=== PATIENT | male | born 1950 | race Caucasian/White ===

== ENCOUNTER 2020-11-03 15:21 | Emergency (ER) | payer MEDICARE, SELFPAY ==
[2020-11-03 15:38] VITALS: BP 184/89; PULSE 92; RESP 20; TEMP 36.8; O2SAT 99; BMI 24.4
--- NOTE | 2020-11-03 15:58 | HMH.EDGENADL ---
ED Disposition Clinical Impression: Dental caries, Dental abscess Disposition: Home, Self-Care Condition on Discharge: Good Instructions: DI for Dental Pain, DI for Tooth Decay Additional Instructions: You have been evaluated for dental caries and dental pain. Concern for infection. Please take penicillin as prescribed. Take ibuprofen for inflammation. Use Orajel. Follow-up with a dentist as soon as available. Return to the emergency department at once for any new or worsening symptoms, headache, fevers, difficulty swallowing or any other concerns. Prescriptions: Ibuprofen [Ibuprofen 600mg Tablet] 600 mg PO Q6 PRN #20 tab PRN Reason: Mild Pain Transmission Status: [facility] Benzocaine [Oral Analgesic] 9 gm MM BID #9 gel..gram. Transmission Status: Pending to [facility] Penicillin V Potassium 500 mg PO TID #15 tab Transmission Status: Pending to [facility] Referrals: William Arias MD [Primary Care Provider] - Time of Disposition: 16:02 - Critical Care Critical Care Time: No Attestation: On 11/03/20, the high probability of a clinically significant, sudden or life threatening deterioration of the following system(s) required my full and direct attention, intervention and personal management. The time I documented below is in addition to time spent performing reported procedures but includes the following listed in this critical care notation. Medical Decision Making - Medical Records Medical records reviewed: Yes: I reviewed the patient's medical records. - Jann Inquiry Pt receiving controlled substance: No Vital Signs: 11/03/20 15:38 Temperature 98.2 F Temperature Source Oral Pulse Rate [Left] 92 H Respiratory Rate 20 Blood Pressure [Right Arm] 184/89 H Blood Pressure Mean [Right Arm] 120 02 Sat by Pulse Oximetry 99 Medical Decision Narrative: In summary this is a 70-year-old male presenting to the emergency department with dental pain. Patient clinically stable on arrival. He does not appear systemically ill. Doubt deep space infection. Vital signs within normal limits. His extractions were a few weeks ago. I am concerned that I can feel a retained piece of tooth. Will cover presumptively for dental infection. Patient given prescription for penicillin. Recommended to take anti-inflammatories like ibuprofen. Use Orajel. Follow-up with a dentist as soon as available. General Adult HPI - General Chief complaint: Dental/Oral Stated complaint: infection at tooth extraction site Time Seen by Provider: 11/03/20 15:38 Mode of Arrival: Ambulatory Limitations: No Limitations Description of Symptoms (Recalled from ER Triage Doc. by RN): pt states he had two molars pulled in the R upper jaw about two weeks ago. pt states he now has an infection and pain radiating from his R upper jaw to his ear. - History of Present Illness HPI narrative: 70-year-old male presenting to the emergency department with dental pain, concern for infection. He had dental extraction of one of his right upper molars a few weeks ago. Had pain afterward. Over the last few days the pain has become worse. He feels that the upper portion of his jaw and cheek are swollen. No fevers or chills. No nausea or vomiting. He is scheduled for more dental work soon, is going to go to a different dentist. No antibiotics recently. He is not using anything topically or systemically for pain. No allergies to medications. - Related Data Previous Rx's Medication Instructions Recorded Benzocaine [Oral Analgesic] 9 gm MM BID #9 gel..gram. 11/03/20 Ibuprofen [Ibuprofen 600mg 600 mg PO Q6 PRN #20 tab 11/03/20 Tablet] Penicillin V Potassium 500 mg PO TID #15 tab 11/03/20 Allergies Allergy/AdvReac Type Severity Reaction Status Date / Time No Known Allergies Allergy Verified 11/03/20 16:04 [facility] History - Hepatitis A Screen Drug use history?: No High risk
[2020-11-03 16:31] VITALS: BP 124/87; PULSE 72; RESP 16; TEMP 36.9; O2SAT 98
== END 2020-11-03 16:32 | disposition home or self-care (01) ==
PROVIDERS: Emergency Provider Emergency Medicine; PCP Emergency Medicine
DX: K04.7 Periapical abscess without sinus (principal); K02.9 Dental caries, unspecified
CPT/HCPCS: 99281

== ENCOUNTER 2020-11-21 12:00 | Emergency (ER) | payer MEDICARE, SELFPAY ==
[2020-11-21 12:01] VITALS: BP 138/88; PULSE 100; RESP 20; TEMP 36.8; O2SAT 99; BMI 24.4
--- NOTE | 2020-11-21 13:09 | HMH.EDUTC ---
[facility] Disposition Clinical Impression: Dental abscess Disposition: Home, Self-Care Condition on Discharge: Good Instructions: Tooth Abscess Additional Instructions: Salt water swishes. Take antibiotics as prescribed. Prescriptions: Penicillin V Potassium 500 mg PO QID 10 Days #40 tab Transmission Status: P[facility] to [facility] Referrals: William Arias MD [Primary Care Provider] - Time of Disposition: 13:15 Medical Decision Making - Jann Inquiry Pt receiving controlled substance: No [facility] HPI - General Stated complaint: abcess in mouth Time Seen by Provider: 11/21/20 13:10 - History of Present Illness Provider Complaint: Abscess right upper jaw. Had a tooth pulled a few weeks ago and thinks he has bone fragments still in it. Has been unable to contact dentist who did the procedure. No fever. Onset (ago): week(s) (3) Location: mouth Relieving factors: none Exacerbating factors: none Associated symptoms: denies other symptoms Treatments prior to arrival: none - Related Data Previous Rx's Medication Instructions Recorded Benzocaine [Oral Analgesic] 9 gm MM BID #9 gel..gram. 11/03/20 Ibuprofen [Ibuprofen 600mg 600 mg PO Q6 PRN #20 tab 11/03/20 Tablet] Penicillin V Potassium 500 mg PO TID #15 tab 11/03/20 Penicillin V Potassium 500 mg PO QID 10 Days #40 tab 11/21/20 Allergies Allergy/AdvReac Type Severity Reaction Status Date / Time No Known Allergies Allergy Verified 11/03/20 16:05 [facility] History - Hepatitis A Screen Attestation statement:: This patient has been screened for Hepatitis A risk factors. I have reviewed the patient's past medical history: Yes ROS Obtained: Yes All systems reviewed & no additional complaints - ENT Ears, Nose, Mouth, and Throat: Reports dental pain Physical Exam - General General appearance: alert, in no apparent distress - Head Head exam: normocephalic - Eye Eye exam: Present: PERRL - ENT ENT exam: Present: other (abscess right upper gumline) - Neck Neck exam: Absent: lymphadenopathy - Respiratory Respiratory exam: Present: normal lung sounds bilaterally - Cardiovascular Cardiovascular exam: Present: regular rate, normal rhythm - Neurological Exam Neurological exam: Present: alert, oriented X3 - Psychiatric Psychiatric exam: Present: normal affect, normal mood - Skin Skin exam: Present: warm, dry, intact
[2020-11-21 13:22] VITALS: BP 138/88; PULSE 100; RESP 20; TEMP 36.8; O2SAT 99
== END 2020-11-21 13:23 | disposition home or self-care (01) ==
PROVIDERS: Emergency Provider Physician Assistant; PCP Emergency Medicine
DX: K04.7 Periapical abscess without sinus (principal)
CPT/HCPCS: G0463; 99202

== ENCOUNTER → 2021-02-08 16:43 | Outpatient (CLI) | payer MEDICARE, SELFPAY ==
--- NOTE | 2021-02-08 16:53 | XR_ITS ---
PROCEDURE INFORMATION: Exam: XR Chest Exam date and time: 02/08/2021 4:53 PM Age: 70 years old Clinical indication: Cardiovascular condition or disease; Prior surgery; Surgery date: <1 month; Surgery type: Vessel grafted from leg to right upper chest area per patient. Patient had surgery at another hospital and his family doctor is trying to figure out what was actually done. ; Additional info: PT reports HX of bypass TECHNIQUE: Imaging protocol: XR of the chest. Views: 2 views. COMPARISON: No relevant prior studies available. FINDINGS: Tubes, catheters and devices: Multiple surgical clips projected over the upper right chest, projected over the lung apex on frontal and lateral views, and also projected over the posterior chest wall on the lateral view. Lungs: No acute pulmonary findings. No pulmonary consolidation. Lung volumes within normal limits. Pleural spaces: Unremarkable. No significant pleural effusion. No pneumothorax. Heart/Mediastinum: The cardiac silhouette is normal. 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 IMPRESSION: 1. Right upper chest surgical changes. 2. No acute cardiopulmonary findings.
--- NOTE | 2021-02-08 17:14 | ECG_ITS ---
APPROVED REPORT Exam: Resting ECG HR:79 bpm ECG Measurements Heart Rate 79 AXES CO 190 P 113 QRSd 100 QRS 92 QT 378 T 53 QTc 433 Conclusion Suspect arm lead reversal, interpretation assumes no reversal Normal sinus rhythm Rightward axis Borderline ECG Electronically signed by : Gael Coffey MD 02/08/2021 21:12:53
== END ==
LOC: RAD 16:45
PROVIDERS: PCP Family Medicine; Visit Provider Family Medicine
DX: I25.10 Atherosclerotic heart disease of native coronary artery without angina pectoris (principal); Z95.1 Presence of aortocoronary bypass graft
CPT/HCPCS: 71046; 93005

== ENCOUNTER 2021-08-18 14:21 | Emergency (ER) | payer MEDICARE, SELFPAY ==
--- NOTE | 2021-08-18 14:15 | ECG_ITS ---
APPROVED REPORT Exam: Resting ECG HR:90 bpm ECG Measurements Heart Rate 90 AXES AK 197 P 102 QRSd 105 QRS 79 QT 347 T 65 QTc 395 Conclusion SINUS RHYTHM NORMAL ECG UNCONFIRMED REPORT Electronically signed by : Gael Coffey MD 08/19/2021 10:19:07
[2021-08-18 14:17] VITALS: BP 211/109; PULSE 88; RESP 20; TEMP 36.5; O2SAT 100; BMI 23.7
--- NOTE | 2021-08-18 14:24 | HMH.EDGENADL ---
ED Disposition Clinical Impression: Hypertension, essential, Peripheral edema, Left leg pain, Rectal bleeding Bilateral shoulder pain Qualifiers: Chronicity: acute Qualified Code(s): M25.511 - Pain in right shoulder; M25.512 - Pain in left shoulder Disposition: Home, Self-Care Condition on Discharge: Good Instructions: DI for Rectal Bleeding, DI for High Blood Pressure, DI for Peripheral Edema -- Bilateral Additional Instructions: Take losartan/hydrochlorothiazide as prescribed for blood pressure daily, start tomorrow. Continue using Lantus insulin as you do now. See Dr. Arias in the office, call tomorrow morning to make an appointment to be seen as soon as possible. Return if any severe rectal bleeding or any worsening of condition. Prescriptions: Losartan/Hydrochlorothiazide [Losartan-Hctz 100-25 mg Tab] 1 each PO DAILY #30 tab Transmission Status: Pending to [id number] Referrals: Provider,Referral, [Primary Care Provider] - - Critical Care Critical Care Time: No Attestation: On 08/18/21, the high probability of a clinically significant, sudden or life threatening deterioration of the following system(s) required my full and direct attention, intervention and personal management. The time I documented below is in addition to time spent performing reported procedures but includes the following listed in this critical care notation. Medical Decision Making - Jann Inquiry Pt receiving controlled substance: No Vital Signs: 08/18/21 14:17 08/18/21 16:38 08/18/21 16:40 Temperature 97.7 F Temperature Source Oral Pulse Rate 85 Pulse Rate [Right Radial] 88 Respiratory Rate 20 Blood Pressure 184/100 H 184/100 H Blood Pressure [Right Arm] 211/109 H Blood Pressure Mean [Right Arm] 143 Blood Pressure Source [Right Arm] Automatic Cuff Blood Pressure Position [Right Arm] Sitting 02 Sat by Pulse Oximetry 100 99 Oxygen Delivery Method Room Air - Lab Data Lab Results 08/18/21 14:25: WBC 6.9, RBC 4.22 L, Hgb 13.1 L, Hct 38.6 L, MCV 91.5, MCH 31.1, MCHC 34.0, RDW 15.9, Plt Count 151, MPV 8.2, Neut % (Auto) 67.2, Lymph % (Auto) 25.0, [place] % (Auto) 6.0, Eos % (Auto) 0.9, Baso % (Auto) 0.8, Neut # (Auto) 4.6, Lymph # (Auto) 1.7, [place] # (Auto) 0.4, Eos # (Auto) 0.1, Baso # (Auto) 0.1 08/18/21 14:25: Sodium 136, Potassium 4.2, Chloride 103, Carbon Dioxide 26, Anion Gap 11.2, BUN 26 H, Creatinine 1.00, Estimated GFR 74, Est GFR ( Amer) 90, Glucose 261 H, Calcium 9.4, Total Bilirubin 0.6, AST 37, ALT 43, Alkaline Phosphatase 117, Troponin I 0.01, NT-Pro-B Natriuret Pep 462 H, Total Protein 6.4, Albumin 3.7, Globulin 2.7, Albumin/Globulin Ratio 1.4 Result diagrams: 08/18/21 14:25 08/18/21 14:25 Orders (Tests/Meds): ED MEDICATIONS Discontinued Medications Generic Name Dose Route Start Last Admin Trade Name Freq PRN Reason Stop Dose Admin Ketorolac Tromethamine 15 mg 08/18/21 17:02 08/18/21 17:05 Ketorolac 30mg/Ml Vial IV 08/18/21 17:03 15 mg ONCE ONE Administration Labetalol HCl 20 mg 08/18/21 15:53 08/18/21 16:38 Labetalol 5mg/Ml 20ml Mdv IV 08/18/21 15:54 20 mg ONCE ONE Administration ORDERS Category Date Time Status Troponin I Q3H Lab 08/18/21 17:30 Ordered Troponin I Q3H Lab 08/18/21 20:30 Ordered - Radiology Data #1 Image(s): Chest, Shoulder (bilateral) Image Reviewed: Yes I reviewed the patient's radiology image Preliminary Findings: Abnormal (Surgical clips upper right chest. Calcification of soft tissues both shoulders, no fractures.) - US Data US Images: Upper Extremity, Lower Extremity Findings Narrative: As per [facility] procedure, doppler report received from traffic analysis technician: Negative for DVT upper and lower extremity - ECG Data Tracing #1 EKG interpreted by Cecil Obrien MD: Rhythm: sinus Rate: 90 [place]: normal Ectopy: none Conduction: normal ST Segment Changes: none T Wave Changes
--- NOTE | 2021-08-18 14:29 | XR_ITS ---
FINAL REPORT CLINICAL HISTORY: anuradha shoudler pain FINDINGS: RIGHT SHOULDER 3 views of the right shoulder were obtained. There is no acute fracture or dislocation. There are mild degenerative changes of the acromioclavicular and glenohumeral joints. There are soft tissue calcifications in the lateral aspect of the shoulder. There are postoperative changes in the right upper thorax. IMPRESSION: Mild degenerative change of the acromioclavicular and glenohumeral joints. No acute bony abnormality. Reviewed, Interpreted and Dictated by Samm Boyle III, MD Transcribed by Ruby Watts Authenticated by Samm Boyle III, MD on 08/18/2021 04:54:56 PM [facility]
--- NOTE | 2021-08-18 14:29 | XR_ITS ---
FINAL REPORT CLINICAL HISTORY: swelling COMPARISON: February 08, 2021 FINDINGS: TWO-VIEW CHEST Two views of the chest were obtained. The heart size and pulmonary vascularity are within normal limits. The mediastinum is normal. No acute pulmonary abnormality is identified. There is no pneumothorax. There are postoperative changes in the right upper thorax. There are postoperative changes from resection of the medial left clavicle. IMPRESSION: No active cardiopulmonary disease. Reviewed, Interpreted and Dictated by Samm Boyle III, MD Transcribed by Ruby Watts Authenticated by Samm Boyle III, MD on 08/18/2021 04:38:24 PM [facility]
--- NOTE | 2021-08-18 14:29 | XR_ITS ---
FINAL REPORT CLINICAL HISTORY: anuradha shoulder pain FINDINGS: LEFT SHOULDER 3 views of the left shoulder were obtained. There is no acute fracture or dislocation. There are mild degenerative changes of the acromioclavicular and glenohumeral joints. There are soft tissue calcifications in the lateral aspect of the shoulder. There are postoperative changes from partial resection of the medial left clavicle. IMPRESSION: Mild degenerative change of the acromioclavicular and glenohumeral joint. No acute bony abnormality. Reviewed, Interpreted and Dictated by Samm Boyle III, MD Transcribed by Ruby Watts Authenticated by Samm Boyle III, MD on 08/18/2021 04:54:57 PM [facility]
[2021-08-18 14:41] LABS: Basophils # 0.1 K/mm3 (0-0.2); Basophils % 0.8 % (0.1-2.0); Eosinophils # 0.1 K/mm3 (0.0-0.4); Eosinophils % 0.9 % (0.1-12.0); Hematocrit 38.6 % (42.0-52.0); Hemoglobin 13.1 g/dL (14.1-18.0); Lymphocytes # 1.7 K/mm3 (0.7-4.5); Mean Corpuscular Hemoglobin 31.1 pg (27.0-31.2); Mean Corpuscular Volume 91.5 fl (80-94); Mean Platelet Volume 8.2 fl (7.4-10.4); Monocytes # 0.4 K/mm3 (0.1-1.0); Neutrophils # 4.6 K/mm3 (1.8-7.8); Neutrophils % 67.2 % (37.0-80.0); Platelet Count 151 K/mm3 (142-424); Red Blood Count 4.22 M/mm3 (4.60-6.20); Red Cell Distribution Width 15.9 % (11.5-17.5); White Blood Count 6.9 K/mm3 (4.8-10.8)
[2021-08-18 14:42] LABS: Chloride 103 mmol/L (98-107); Sodium 136 mmol/L (136-145)
[2021-08-18 14:45] LABS: Alanine Aminotransferase 43 U/L (12-78); Albumin Level 3.7 g/dl (3.5-5.0); Albumin/Globulin Ratio 1.4 (1.1-1.8); Alkaline Phosphatase 117 U/L (38-126); Aspartate Amino Transferase 37 U/L (17-59); Bilirubin,Total 0.6 mg/dl (0.2-1.3); Blood Urea Nitrogen 26 mg/dl (9-20); Carbon Dioxide 26 mmol/L (22.0-30.0); Estimated Glomerular Filt Rate 74 ml/min (>60); GFR (African American) 90 ML/MIN (>60); Globulin 2.7 g/dL (1.3-3.2); Total Protein,Serum 6.4 g/dl (6.3-8.2)
[2021-08-18 14:46] LABS: Calcium 9.4 mg/dl (8.4-10.2); Glucose 261 mg/dl (74-100)
[2021-08-18 14:54] LABS: NT Pro Brain Natriuretic Pep. 462 pg/mL (0-125)
[2021-08-18 14:58] LABS: Troponin I 0.01 ng/ml (0.00-0.034)
[2021-08-18 15:06] LABS: Anion Gap 11.2 mEq/L (5-15); Potassium 4.2 mmoL/L (3.5-5.1)
--- NOTE | 2021-08-18 15:48 | CA_ITS ---
FINAL REPORT TECHNIQUE: Color Doppler, duplex Doppler and compression sonography of the left lower extremity deep venous systems was performed. CLINICAL HISTORY: swelling pain FINDINGS: There is no evidence of deep venous thrombosis from the level of the groin to the calf. The veins are patent and compressible. IMPRESSION: No evidence of deep venous thrombosis left lower extremity. Reviewed, Interpreted and Dictated by Samm Boyle III, MD Transcribed by Guadalupe Ugarte Authenticated by Samm Boyle III, MD on 08/18/2021 04:54:58 PM [facility]
--- NOTE | 2021-08-18 15:48 | CA_ITS ---
FINAL REPORT TECHNIQUE: Graded compression, spectral analysis and ultrasound images of the venous system of the upper extremity were obtained. CLINICAL HISTORY: swelling FINDINGS: The jugular vein, subclavian vein, axillary vein, brachial vein, cephalic vein and basilic venous system are fully compressible and demonstrate no evidence of thrombosis. IMPRESSION: No evidence of thrombosis of the venous system of the left upper extremity. Reviewed, Interpreted and Dictated by Samm Boyle III, MD Transcribed by Guadalupe Ugarte Authenticated by Samm Boyle III, MD on 08/18/2021 04:54:[address] [facility]
[2021-08-18 16:38] VITALS: BP 184/100
[2021-08-18 16:40] VITALS: BP 184/100; PULSE 85; O2SAT 99
--- NOTE | 2021-08-18 17:07 | PC.NURSE ---
PT C/O SHOULDER AND LEG PAIN , DR PAK ORDERED MEDS ,
[2021-08-18 17:35] VITALS: BP 174/94; PULSE 76; RESP 19; TEMP 36.5; O2SAT 98
== END 2021-08-18 17:35 | disposition home or self-care (01) ==
PROVIDERS: Emergency Provider Emergency Medicine
DX: I10 Essential (primary) hypertension (principal); R60.1 Generalized edema; M79.605 Pain in left leg; K62.5 Hemorrhage of anus and rectum; M25.511 Pain in right shoulder; M25.512 Pain in left shoulder; E11.9 Type 2 diabetes mellitus without complications
CPT/HCPCS: 71046; 73030; 80053; 83880; 84484; 85025; 93005; 93971; 96374; 96375; 99284

== ENCOUNTER 2021-08-25 20:52 | Emergency (ER) | payer MEDICARE, SELFPAY ==
[2021-08-25 20:53] VITALS: BP 195/107; RESP 18; TEMP 37.1; O2SAT 100; BMI 24.4
--- NOTE | 2021-08-25 20:59 | ECG_ITS ---
APPROVED REPORT Exam: Resting ECG HR:83 bpm ECG Measurements Heart Rate 83 AXES CO 180 P -70 QRSd 102 QRS 91 QT 354 T 89 QTc 394 Conclusion ECTOPIC ATRIAL RHYTHM WITH OCCASIONAL SUPRAVENTRICULAR PREMATURE COMPLEXES BORDERLINE RIGHT AXIS DEVIATION [QRS AXIS > 90] ABNORMAL RHYTHM ECG UNCONFIRMED REPORT Electronically signed by : Gael Coffey MD 08/26/2021 21:09:59
--- NOTE | 2021-08-25 21:21 | XR_ITS ---
PROCEDURE INFORMATION: Exam: XR Chest Exam date and time: 08/25/2021 9:24 PM Age: 70 years old Clinical indication: Cardiovascular condition or disease; Other: HTN; Prior surgery TECHNIQUE: Imaging protocol: XR of the chest. Views: 2 views. COMPARISON: CR XR CHEST 2V 08/18/2021 2:46 PM FINDINGS: Tubes, catheters and devices: Surgical clips overlie the right lung apex. Lungs: No focal pneumonia. Bilateral hyperinflation is present. Pleural spaces: There is no evidence of pneumothorax. There are no pleural effusions present. Heart/Mediastinum: Unremarkable. No cardiomegaly. Bones/joints: Unremarkable. IMPRESSION: 1. No focal pneumonia. 2. Bilateral hyperinflation is present.
[2021-08-25 21:38] LABS: Basophils # 0.1 K/mm3 (0-0.2); Basophils % 0.9 % (0.1-2.0); Eosinophils % 0.2 % (0.1-12.0); Lymphocytes # 1.8 K/mm3 (0.7-4.5); Lymphocytes % 23.5 % (10-50); Mean Corpuscular HGB Conc 33.3 g/dL (31.8-35.4); Mean Corpuscular Hemoglobin 30.3 pg (27.0-31.2); Mean Corpuscular Volume 91.1 fl (80-94); Mean Platelet Volume 8.2 fl (7.4-10.4); Monocytes # 0.5 K/mm3 (0.1-1.0); Monocytes % 6.5 % (1.7-9.3); Neutrophils # 5.4 K/mm3 (1.8-7.8); Platelet Count 192 K/mm3 (142-424); Red Blood Count 4.28 M/mm3 (4.60-6.20); Red Cell Distribution Width 15.6 % (11.5-17.5); White Blood Count 7.8 K/mm3 (4.8-10.8)
[2021-08-25 21:40] LABS: Alanine Aminotransferase 33 U/L (12-78); Albumin Level 3.7 g/dl (3.5-5.0); Alkaline Phosphatase 74 U/L (38-126); Anion Gap 11.1 mEq/L (5-15); Aspartate Amino Transferase 28 U/L (17-59); Bilirubin,Indirect 0.6 mg/dL (0.0-0.9); Bilirubin,Total 0.6 mg/dl (0.2-1.3); Bilirubin,Unconjugated 0.6 mg/dL (0.0-1.1); Blood Urea Nitrogen 26 mg/dl (9-20); Calcium 8.7 mg/dl (8.4-10.2); Carbon Dioxide 25 mmol/L (22.0-30.0); Chloride 102 mmol/L (98-107); Creatinine Clearance Estimated 81 mL/min (50-200); Estimated Glomerular Filt Rate 74 ml/min (>60); GFR (African American) 90 ML/MIN (>60); Glucose 205 mg/dl (74-100); Potassium 4.1 mmoL/L (3.5-5.1); Sodium 134 mmol/L (136-145); Total Protein,Serum 6.5 g/dl (6.3-8.2)
[2021-08-25 21:45] LABS: C-Reactive Protein 0.3 mg/L (0-4)
[2021-08-25 21:49] LABS: NT Pro Brain Natriuretic Pep. 506 pg/mL (0-125)
[2021-08-25 21:57] LABS: Procalcitonin 0.086 ng/mL (0.0-2.0)
[2021-08-25 22:26] LABS: Erythrocyte Sedimentation Rate 19 mm/hr (0-20); Troponin I < 0.01 ng/ml (0.00-0.034)
--- NOTE | 2021-08-25 22:26 | HMH.EDGENADL ---
ED Disposition Clinical Impression: Hypertensive urgency Headache Qualifiers: Headache type: unspecified Headache chronicity pattern: acute headache Intractability: not intractable Qualified Code(s): R51.9 - Headache, unspecified Disposition: Home, Self-Care Condition on Discharge: Good Instructions: DI for Headache Additional Instructions: see pcp for follow up Referrals: Carlos Chin MD [Primary Care Provider] - - Critical Care Critical Care Time: No Attestation: On 08/25/21, the high probability of a clinically significant, sudden or life threatening deterioration of the following system(s) required my full and direct attention, intervention and personal management. The time I documented below is in addition to time spent performing reported procedures but includes the following listed in this critical care notation. Medical Decision Making - Medical Records Medical records reviewed: Yes: I reviewed the patient's medical records. - Jann Inquiry Pt receiving controlled substance: No Vital Signs: 08/25/21 20:53 Temperature 98.7 F Temperature Source Oral Respiratory Rate 18 Blood Pressure [Right Arm] 195/107 H Blood Pressure Mean [Right Arm] 136 02 Sat by Pulse Oximetry 100 Oxygen Delivery Method Room Air - Lab Data Lab results reviewed: Yes: I reviewed the patient's lab results. Lab Results 08/25/21 21:12: ESR 19 08/25/21 21:12: Troponin I < 0.01, C-Reactive Protein 0.3, Procalcitonin 0.086 08/25/21 21:12: WBC 7.8, RBC 4.28 L, Hgb 13.0 L, Hct 39.0 L, MCV 91.1, MCH 30.3, MCHC 33.3, RDW 15.6, Plt Count 192, MPV 8.2, Neut % (Auto) 69.0, Lymph % (Auto) 23.5, [place] % (Auto) 6.5, Eos % (Auto) 0.2, Baso % (Auto) 0.9, Neut # (Auto) 5.4, Lymph # (Auto) 1.8, [place] # (Auto) 0.5, Eos # (Auto) 0.0, Baso # (Auto) 0.1 08/25/21 21:12: Sodium 134 L, Potassium 4.1, Chloride 102, Carbon Dioxide 25, Anion Gap 11.1, BUN 26 H, Creatinine 1.00, Estimated Creat Clear 81, Estimated GFR 74, Est GFR ( Amer) 90, Glucose 205 H, Calcium 8.7, Total Bilirubin 0.6, Direct Bilirubin 0.0, Conjugated Bilirubin 0.0, Indirect Bilirubin 0.6, Unconjugated Bilirubin 0.6, AST 28, ALT 33, Alkaline Phosphatase 74, NT-Pro-B Natriuret Pep 506 H, Total Protein 6.5, Albumin 3.7 Result diagrams: 08/25/21 21:12 08/25/21 21:12 Orders (Tests/Meds): ED MEDICATIONS Generic Name Dose Route Start Last Admin Trade Name Freq PRN Reason Stop Dose Admin Sodium Chloride 1,000 mls @ 999 mls/hr 08/25/21 21:45 08/25/21 22:14 Sod Chlor 0.9% 1000ml Bag IV 08/25/21 22:45 999 mls/hr .Q1H1M LETI Administration Discontinued Medications Generic Name Dose Route Start Last Admin Trade Name Freq PRN Reason Stop Dose Admin Acetaminophen 1,000 mg 08/25/21 21:40 08/25/21 22:14 Acetaminophen 500mg Tab PO 08/25/21 21:41 1,000 mg ONCE ONE Administration Amlodipine Besylate 5 mg 08/25/21 23:32 08/25/21 23:33 Amlodipine 5mg Tablet PO 08/25/21 23:33 5 mg ONCE ONE Administration Clonidine HCl 0.1 mg 08/25/21 21:40 08/25/21 22:14 Clonidine 0.1mg Tablet PO 08/25/21 21:41 0.1 mg ONCE ONE Administration Ketorolac Tromethamine 30 mg 08/25/21 22:44 08/25/21 22:40 Ketorolac 30mg/Ml Vial IV 08/25/21 22:45 30 mg ONCE ONE Administration Morphine Sulfate 4 mg 08/25/21 22:55 08/25/21 22:57 Morphine 4mg/Ml Syringe IV 08/25/21 22:56 4 mg ONCE ONE Administration Ondansetron HCl 4 mg 08/25/21 21:52 08/25/21 22:14 Ondansetron 4mg/2ml Vial IV 08/25/21 21:53 4 mg ONCE ONE Administration ORDERS Category Date Time Status Troponin I Q3H Lab 08/26/21 00:30 Ordered Troponin I Q3H Lab 08/26/21 03:30 Ordered - Radiology Data #1 Image(s): Chest Image Reviewed: Yes I have reviewed radiologist's interpretation Preliminary Findings: Normal/NAD - CT Data CT Scan: Head Time Received: 23:[address] Reviewed: Yes: I have viewed the radiologist's interpretation Preliminary Findings:
--- NOTE | 2021-08-25 22:44 | CT_ITS ---
PROCEDURE INFORMATION: Exam: CT Head Without Contrast Exam date and time: 08/25/2021 10:56 PM Age: 70 years old Clinical indication: Other: Headache TECHNIQUE: Imaging protocol: Computed tomography of the head without contrast. Radiation optimization: All CT scans at this facility use at least one of these dose optimization techniques: automated exposure control; mA and/or kV adjustment per patient size (includes targeted exams where dose is matched to clinical indication); or iterative reconstruction. COMPARISON: No relevant prior studies available. FINDINGS: Brain: White matter changes compatible with small vessel occlusive change. No mass. No hemorrhage. Soft tissue injury without acute intracranial abnormality. Cerebral ventricles: No ventriculomegaly. Paranasal sinuses: No fluid levels. Mastoid air cells: Visualized mastoid air cells are well aerated. Bones/joints: No acute fracture. Soft tissues: No significant soft tissue abnormality. IMPRESSION: Chronic changes without acute process.
[2021-08-25 23:50] VITALS: BP 166/90; PULSE 72; RESP 18; TEMP 36.9; O2SAT 97
== END 2021-08-26 | disposition home or self-care (01) ==
PROVIDERS: Emergency Provider Emergency Medicine; PCP Family Medicine
DX: I16.0 Hypertensive urgency (principal); E11.65 Type 2 diabetes mellitus with hyperglycemia; Z79.899 Other long term (current) drug therapy
CPT/HCPCS: 70450; 71046; 80048; 80076; 83880; 84145; 84484; 85025; 85651; 86140; 93005; 96365; 96375; 99284; J2405

== ENCOUNTER → 2021-10-27 10:24 | Outpatient (CLI) | payer MEDICARE, SELFPAY ==
--- NOTE | 2021-10-27 10:25 | MR_ITS ---
FINAL REPORT CLINICAL HISTORY: LBP after fall. LOW BACK PAIN FOR 3 WEEKS SINCE FALL. LEFT HIP AND LEG PAIN, NUMBNESS, AND TINGLING. WEAKNESS IN LEFT LEG. FINDINGS: Multiplanar MR imaging of the lumbar spine was performed without contrast. On the sagittal T2-weighted images, there is abnormal decreased signal throughout the lumbar discs. There is advanced disc space narrowing at L3-4 and L4-5. Endplate reactive signal changes are seen at L4-5. The vertebral alignment is normal. L1-2: Moderate diffuse disc bulge and endplate hypertrophy are present. There is mild right and moderate left neural foraminal narrowing. L2-3: Posterolateral disc protrusions are present with mild bilateral neural foraminal narrowing. L3-4: Endplate hypertrophy is present with mild to moderate bilateral neural foraminal narrowing. L4-5: Endplate hypertrophy is present with moderate bilateral neural foraminal narrowing. L5-S1: Moderate diffuse disc bulge is present. There is bilateral facet hypertrophy with high-grade bilateral neural foraminal narrowing. IMPRESSION: Multilevel degenerative disc disease with high-grade bilateral neural foraminal narrowing at L5-S1. Reviewed, Interpreted and Dictated by Lux Bob MD Transcribed by Guadalupe Ugarte Authenticated and [facility]
== END ==
LOC: RAD 10:25
PROVIDERS: PCP Family Medicine; Visit Provider Family Medicine
DX: M54.50 Low back pain, unspecified (principal); W18.00XA Striking against unspecified object with subsequent fall, initial encounter
CPT/HCPCS: 72148; 76376

== ENCOUNTER → 2021-11-03 13:03 | Outpatient (CLI) | payer MEDICARE, SELFPAY ==
--- NOTE | 2021-11-03 13:06 | CA_ITS ---
FINAL REPORT TECHNIQUE: Color Doppler, duplex Doppler and compression sonography of the left lower extremity deep venous systems was performed. CLINICAL HISTORY: pain and swelling in left leg, Back pain with weakness FINDINGS: There is no evidence of deep venous thrombosis from the level of the groin to the calf. The veins are patent and compressible. IMPRESSION: No evidence of deep venous thrombosis left lower extremity. Reviewed, Interpreted and Dictated by Samm Boyle III, MD Transcribed by Ruby Watts Authenticated and . [facility]
== END ==
PROVIDERS: PCP Family Medicine; Visit Provider Family Medicine
DX: M79.605 Pain in left leg (principal)
CPT/HCPCS: 93971

== ENCOUNTER 2021-11-03 13:56 | Emergency (ER) | payer MEDICARE, SELFPAY ==
[2021-11-03] VITALS (10 sets, daily range): BP systolic 155–200; BP diastolic 85–108; PULSE 76–92; RESP 16–18; TEMP 36.9; O2SAT 100; BMI 24.4
--- NOTE | 2021-11-03 14:12 | XR_ITS ---
FINAL REPORT CLINICAL HISTORY: pain and swelling FINDINGS: LEFT FOOT Three views were obtained. There is no acute fracture or dislocation. There are severe degenerative changes of the 1st metatarsophalangeal joint. Mild degenerative changes are seen elsewhere. There is a posterior calcaneal spur. No soft tissue abnormality is identified. IMPRESSION: Degenerative changes with no acute process. Reviewed, Interpreted and Dictated by Samm Boyle III, MD Transcribed by Guadalupe Ugarte Authenticated and [facility]
--- NOTE | 2021-11-03 14:12 | XR_ITS ---
FINAL REPORT CLINICAL HISTORY: pain and swelling FINDINGS: LEFT KNEE Three views were obtained. There is no acute fracture or dislocation. No joint effusion is identified. The joint spaces appear normal. No soft tissue abnormality is identified. IMPRESSION: No acute process. Reviewed, Interpreted and Dictated by Samm Boyle III, MD Transcribed by Guadalupe Ugarte Authenticated and [facility]
--- NOTE | 2021-11-03 14:40 | HMH.EDGENADL ---
ED Disposition Clinical Impression: Left knee sprain Qualifiers: Encounter type: initial encounter Involved ligament of knee: unspecified ligament Qualified Code(s): S83.92XA - Sprain of unspecified site of left knee, initial encounter Sprain of left foot Qualifiers: Encounter type: initial encounter Qualified Code(s): S93.602A - Unspecified sprain of left foot, initial encounter Disposition: Home, Self-Care Condition on Discharge: Good Instructions: DI for Knee Sprain Prescriptions: Hydrocod/Acet 5/325 mg [[place] 5/325mg tablet] 1 tab PO Q6HP PRN #7 tab PRN Reason: Moderate Pain Transmission Status: Received by [id number] Referrals: Carlos Chin MD [Primary Care Provider] - - Critical Care Critical Care Time: No Attestation: On 11/03/21, the high probability of a clinically significant, sudden or life threatening deterioration of the following system(s) required my full and direct attention, intervention and personal management. The time I documented below is in addition to time spent performing reported procedures but includes the following listed in this critical care notation. Medical Decision Making - Medical Records Medical records reviewed: Yes: I reviewed the patient's medical records. - Ajnn Inquiry Pt receiving controlled substance: No Vital Signs: 11/03/21 13:57 11/03/21 14:30 11/03/21 15:00 Temperature 98.5 F Temperature Source Oral Pulse Rate 90 89 Pulse Rate [Left Radial] 92 H Respiratory Rate 16 17 Blood Pressure 177/91 H 181/94 H Blood Pressure [Right Arm] 168/85 H Blood Pressure Mean 119 123 Blood Pressure Mean [Right Arm] 112 Blood Pressure Source [Right Arm] Automatic Cuff Blood Pressure Position [Right Arm] Sitting 02 Sat by Pulse Oximetry 100 100 100 Oxygen Delivery Method Room Air Orders (Tests/Meds): ED MEDICATIONS Discontinued Medications Generic Name Dose Route Start Last Admin Trade Name Freq PRN Reason Stop Dose Admin Hydrocodone Bitart/Acetaminophen 1 tab 11/03/21 14:12 11/03/21 15:02 Hydrocodone/Apap 5/325 Mg Tablet PO 11/03/21 14:13 1 tab ONCE ONE Administration - Radiology Data #1 Image(s): Knee, Foot/Toes Image Reviewed: Yes I reviewed the patient's radiology results, Yes I reviewed the patient's radiology image, Yes I have reviewed radiologist's interpretation IMPRESSION: Degenerative changes with no acute process. - Reevaluation(s) Time: 15:54 Reevaluation #1: On reevaluation, patient is feeling better. No evidence of fracture on imaging. Likely secondary to strain. Patient will follow up with PCP in 48 hours. Given strict return precautions. Verbalized understanding. Medical Decision Narrative: 71-year-old male presenting with some left foot and left knee pain. Findings consistent with sprain. There is no obvious deformity. Imaging will be obtained. Patient treated symptomatically. General Adult HPI - General Chief complaint: PAIN Stated complaint: Left Leg Pain Time Seen by Provider: 11/03/21 14:00 Mode of Arrival: Wheelchair Limitations: No Limitations Description of Symptoms (Recalled from ER Triage Doc. by RN): c/o left knee pain down to his ankle after a fall 2 weeks ago. STates he can bear weight but it is very painful. - History of Present Illness HPI narrative: Is a 8-year-old male presented to the emergency department with some left foot pain and left knee pain. The patient fell last week. Was accidental fall where he tripped. He awkwardly twisted his foot and knee. Is complaining of pain on the dorsal aspect of his left foot and pain on the medial aspect of his right knee. Is worse when he tries to walk. He has not been taking anything for the pain. Did not sustain any other injuries. Denies any headache or change in vision. No focal weakness. No chest pain or shortness of breath and abdominal pain or vomiting. - Related Data Home Medications Medic
--- NOTE | 2021-11-03 14:44 | PC.NURSE ---
PT RETURNED FROM XR
--- NOTE | 2021-11-03 14:46 | PC.NURSE ---
Rounded on patient. Asked patient and if I could get them anything. They stated they wanted coffee. I told the patient's we have coffee out in the lobby. Asked them if they needed anything. Patient said he was okay for right now.
--- NOTE | 2021-11-03 15:47 | PC.NURSE ---
rounded on pt at this time, pt given non-skid socks for comfort. pt also updated on POC, waiting on final xray reading
--- NOTE | 2021-11-03 16:01 | PC.NURSE ---
ER at speaking with patient regarding update on results
--- NOTE | 2021-11-03 16:18 | PC.NURSE ---
pt seemed upset when I went to [place], states he is in pain and isnt coming back here anymore. Asked what we could do to make him feel ok. I asked if he wanted me to ask the doctor for something for pain, pt stated that if he got a shot, then he would go home and put his foot up and be ok. aware of pt issue and ordered medicine per mar
--- NOTE | 2021-11-03 16:42 | PC.NURSE ---
pt update that we will recheck his pain level in 15 minutes and go from there
--- NOTE | 2021-11-03 17:05 | PC.NURSE ---
pt states he is feeling better with the pain and wants to go home now.
== END 2021-11-03 17:07 | disposition home or self-care (01) ==
PROVIDERS: Emergency Provider Emergency Medicine; PCP Family Medicine
DX: S83.92XA Sprain of unspecified site of left knee, initial encounter (principal); S93.602A Unspecified sprain of left foot, initial encounter; Z79.4 Long term (current) use of insulin; E11.9 Type 2 diabetes mellitus without complications; I10 Essential (primary) hypertension; Z86.14 Personal history of Methicillin resistant Staphylococcus aureus infection
CPT/HCPCS: 73562; 73630; 93971; 96372; 99283

== ENCOUNTER → 2022-02-21 14:38 | Outpatient (CLI) | payer MEDICARE, SELFPAY ==
[2022-02-21 17:41] LABS: Alanine Aminotransferase 63 U/L (12-78); Albumin Level 3.7 g/dl (3.5-5.0); Albumin/Globulin Ratio 1.4 (1.1-1.8); Alkaline Phosphatase 143 U/L (38-126); Anion Gap 14.6 mEq/L (5-15); Aspartate Amino Transferase 52 U/L (17-59); Bilirubin,Total 0.5 mg/dl (0.2-1.3); Blood Urea Nitrogen 23 mg/dl (9-20); Calcium 9.4 mg/dl (8.4-10.2); Carbon Dioxide 27 mmol/L (22.0-30.0); Chloride 105 mmol/L (98-107); Estimated Glomerular Filt Rate 60 ml/min (>60); GFR (African American) 72 ML/MIN (>60); Globulin 2.7 g/dL (1.3-3.2); Glucose 288 mg/dl (74-100); Potassium 4.6 mmoL/L (3.5-5.1); Sodium 142 mmol/L (136-145); Total Protein,Serum 6.4 g/dl (6.3-8.2)
[2022-02-21 18:05] LABS: Hemoglobin A1C 7.8 % (4.0-6.0)
== END ==
PROVIDERS: PCP Family Medicine; Visit Provider Family Medicine
DX: E11.9 Type 2 diabetes mellitus without complications (principal); Z79.4 Long term (current) use of insulin
CPT/HCPCS: 80053; 83036

== ENCOUNTER → 2022-02-24 15:35 | Outpatient (CLI) | payer MEDICARE, SELFPAY ==
[2022-02-24 16:40] LABS: Blood Urea Nitrogen 26 mg/dl (9-20); Estimated Glomerular Filt Rate 60 ml/min (>60); GFR (African American) 72 ML/MIN (>60)
== END ==
PROVIDERS: PCP Family Medicine; Visit Provider Family Medicine
DX: R10.9 Unspecified abdominal pain (principal)
CPT/HCPCS: 36415; 82565; 84520

== ENCOUNTER → 2022-02-25 09:51 | Outpatient (CLI) | payer MEDICARE, SELFPAY ==
--- NOTE | 2022-02-25 09:51 | CT_ITS ---
FINAL REPORT TECHNIQUE: After the administration of oral and intravenous contrast, axial images were obtained through the abdomen and pelvis by computed tomography. The study was performed with techniques to keep radiation dose as low as reasonably achievable, (ALARA). Individual dose reduction techniques using automated exposure control or adjustment of mA and/or kV according to the patient's size were employed. CLINICAL HISTORY: RUQ/RLQ pain with mass FINDINGS: Abdomen: There is calcified granulomata left base. The gallbladder is present. The liver has a nodular peripheral margin which may be due to mild cirrhosis. There is no evidence of splenomegaly, varices, or ascites. The adrenals are normal. The pancreas is unremarkable. The kidneys enhance appropriately. The aorta is normal in caliber. There is no adenopathy. Pelvis: The appendix is remarkable. There are calcifications in the gluteal regions bilaterally which may be related to injection sites. The urinary bladder is unremarkable. There is no free fluid or adenopathy. IMPRESSION: Nodular peripheral margin to the liver which may be due to mild cirrhosis. Reviewed, Interpreted and Dictated by Lux Bob MD Transcribed by Guadalupe Ugarte Authenticated and [facility]
== END ==
LOC: RAD 09:51
PROVIDERS: PCP Family Medicine; Visit Provider Family Medicine
DX: R10.11 Right upper quadrant pain (principal); R10.31 Right lower quadrant pain
CPT/HCPCS: 74177; Q9967

== ENCOUNTER → 2022-07-18 18:10 | Outpatient (CLI) | payer MEDICARE, SELFPAY ==
[2022-07-18 19:13] LABS: Chloride 105 mmol/L (98-107); Sodium 136 mmol/L (136-145)
[2022-07-18 19:14] LABS: Hemoglobin A1C 7.8 % (4.0-6.0); Potassium 4.1 mmoL/L (3.5-5.1)
[2022-07-18 19:16] LABS: Alanine Aminotransferase 58 U/L (12-78); Alkaline Phosphatase 116 U/L (38-126); Anion Gap 11.1 mEq/L (5-15); Aspartate Amino Transferase 44 U/L (17-59); Bilirubin,Total 0.5 mg/dl (0.2-1.3); Blood Urea Nitrogen 29 mg/dl (9-20); Carbon Dioxide 24 mmol/L (22.0-30.0); Cholesterol 161 mg/dl (140-200); Estimated Glomerular Filt Rate 37 ml/min (>60); GFR (African American) 45 ML/MIN (>60); Triglycerides 262 mg/dl (30-150); VLDL Cholesterol 52 mg/dL (0-40)
[2022-07-18 19:17] LABS: Albumin Level 3.6 g/dl (3.5-5.0); Albumin/Globulin Ratio 1.2 (1.1-1.8); Calcium 8.5 mg/dl (8.4-10.2); Chol/HDL Ratio 5.4 (1-3.5); Globulin 3.1 g/dL (1.3-3.2); Glucose 279 mg/dl (74-100); HDL Cholesterol 30 mg/dl (40-60); Total Protein,Serum 6.7 g/dl (6.3-8.2)
[2022-07-18 19:49] LABS: Direct LDL Cholesterol 89.65 mg/dL (100-129)
== END ==
PROVIDERS: PCP Family Medicine; Visit Provider Family Medicine
DX: E11.9 Type 2 diabetes mellitus without complications (principal); I16.0 Hypertensive urgency; Z79.4 Long term (current) use of insulin
CPT/HCPCS: 80053; 80061; 83036

== ENCOUNTER → 2022-08-01 07:42 | Outpatient (CLI) | payer MEDICARE, SELFPAY ==
--- NOTE | 2022-08-01 07:48 | CA_ITS ---
FINAL REPORT TECHNIQUE: Grayscale, color Doppler and duplex Doppler ultrasound of the kidneys, aorta and renal arteries was performed. Multiple velocities were measured. CLINICAL HISTORY: HTN FINDINGS: Aorta velocity: 98 cm/sec Right kidney: 10.5 cm. No evidence of hydronephrosis or mass. Right intrarenal RI: 0.66 Right renal artery velocity: 132 cm/sec. Right RAR (Renal artery-Aortic Ratio): 1.34 Left Kidney: 10.7 cm. No evidence of hydronephrosis or mass. Left intrarenal RI: 0.67 Left renal artery velocity: 154 cm/sec. Left RAR (Renal Artery-Aortic Ratio): 1.6 IMPRESSION: No evidence of significant renal artery stenosis. CT angiogram or postcontrast MR angiogram would be more sensitive for evaluation of possible renal artery stenosis. Reviewed, Interpreted and Dictated by Samm Boyle III, MD Transcribed by Ruby Watts Authenticated and [facility]
--- NOTE | 2022-08-01 08:20 | US_ITS ---
FINAL REPORT TECHNIQUE: Ultrasound images of the kidneys were obtained. CLINICAL HISTORY: I10 - Essential (primary) hypertension FINDINGS: US RETROPERITONEAL The right kidney measures 10.4 cm in length. It is normal in echogenicity. There is no hydronephrosis. The left kidney measures 10.6 cm in length. It is normal in echogenicity. There is no hydronephrosis. The spleen measures 10.3 cm in length and is unremarkable. IMPRESSION: Unremarkable exam. Reviewed, Interpreted and Dictated by Samm Boyle III, MD Transcribed by Ruby Watts Authenticated and [facility]
== END ==
LOC: RT 07:42
PROVIDERS: PCP Family Medicine; Visit Provider Nurse Practitioner
DX: E11.9 Type 2 diabetes mellitus without complications (principal); I10 Essential (primary) hypertension; R06.00 Dyspnea, unspecified; R07.9 Chest pain, unspecified; R94.31 Abnormal electrocardiogram [ECG] [EKG]; Z72.0 Tobacco use; Z79.4 Long term (current) use of insulin
CPT/HCPCS: 76770; 93976

== ENCOUNTER → 2022-08-12 06:18 | Outpatient (CLI) | payer MEDICARE, SELFPAY | LOC: RAD 06:21 | PROVIDERS: PCP Family Medicine; Visit Provider Nurse Practitioner | DX: E11.9 Type 2 diabetes mellitus without complications (principal); I10 Essential (primary) hypertension; R06.00 Dyspnea, unspecified; R07.9 Chest pain, unspecified; R94.31 Abnormal electrocardiogram [ECG] [EKG]; Z72.0 Tobacco use; Z79.4 Long term (current) use of insulin | CPT/HCPCS: 78452; 93017; 93306; A9502; J2785 ==

== ENCOUNTER → 2022-10-24 23:36 | Outpatient (CLI) | payer MEDICARE, SELFPAY ==
[2022-10-24 19:26] LABS: Alanine Aminotransferase 44 U/L (12-78); Albumin Level 3.8 g/dl (3.5-5.0); Albumin/Globulin Ratio 1.3 (1.1-1.8); Alkaline Phosphatase 98 U/L (38-126); Anion Gap 14.4 mEq/L (5-15); Aspartate Amino Transferase 34 U/L (17-59); Bilirubin,Total 0.4 mg/dl (0.2-1.3); Blood Urea Nitrogen 39 mg/dl (9-20); Calcium 9.1 mg/dl (8.4-10.2); Carbon Dioxide 21 mmol/L (22.0-30.0); Chloride 109 mmol/L (98-107); Estimated Glomerular Filt Rate 31 ml/min (>60); GFR (African American) 38 ML/MIN (>60); Glucose 123 mg/dl (74-100); Potassium 4.4 mmoL/L (3.5-5.1); Sodium 140 mmol/L (136-145); Total Protein,Serum 6.8 g/dl (6.3-8.2)
== END ==
PROVIDERS: PCP Family Medicine; Visit Provider Family Medicine
DX: M54.50 Low back pain, unspecified (principal); M65.30 Trigger finger, unspecified finger; Z01.812 Encounter for preprocedural laboratory examination
CPT/HCPCS: 80053

== ENCOUNTER → 2022-11-10 14:29 | Outpatient (CLI) | payer MEDICARE, SELFPAY ==
--- NOTE | 2022-11-10 14:37 | XR_ITS ---
FINAL REPORT CLINICAL HISTORY: Rt wrist pain FINDINGS: RIGHT WRIST SERIES Three views of the right wrist were obtained. There is no acute fracture or dislocation. The joint spaces are preserved. There is no soft tissue abnormality. IMPRESSION: No acute abnormality. Reviewed, Interpreted and Dictated by Adarsh Madrigal MD Transcribed by Diana Ochoa Authenticated and [facility]
--- NOTE | 2022-11-10 14:37 | XR_ITS ---
FINAL REPORT CLINICAL HISTORY: lt wrist pain FINDINGS: LEFT WRIST SERIES Three views of the left wrist were obtained. There is no acute fracture or dislocation. The joint spaces are preserved. There is no soft tissue abnormality. IMPRESSION: No acute abnormality. Reviewed, Interpreted and Dictated by Adarsh Madrigal MD Transcribed by Diana Ochoa Authenticated and [facility]
== END ==
LOC: RAD 14:32
PROVIDERS: PCP Family Medicine; Visit Provider Orthopaedic Surgery
DX: M25.532 Pain in left wrist (principal); M25.531 Pain in right wrist
CPT/HCPCS: 73110

== ENCOUNTER → 2022-12-22 23:49 | Outpatient (CLI) | payer MEDICARE, SELFPAY ==
[2022-12-22 19:31] LABS: Basophils % 0.4 % (0.1-2.0); Eosinophils # 0.1 K/mm3 (0.0-0.4); Eosinophils % 1.3 % (0.1-12.0); Hematocrit 34.5 % (42.0-52.0); Hemoglobin 11.3 g/dL (14.1-18.0); Lymphocytes # 1.6 K/mm3 (0.7-4.5); Lymphocytes % 19.3 % (10-50); Mean Corpuscular HGB Conc 32.9 g/dL (31.8-35.4); Mean Platelet Volume 8.9 fl (7.4-10.4); Monocytes # 0.6 K/mm3 (0.1-1.0); Monocytes % 6.9 % (1.7-9.3); Neutrophils # 5.9 K/mm3 (1.8-7.8); Neutrophils % 72.1 % (37.0-80.0); Platelet Count 194 K/mm3 (142-424); Red Blood Count 3.79 M/mm3 (4.60-6.20); Red Cell Distribution Width 14.6 % (11.5-17.5); White Blood Count 8.2 K/mm3 (4.8-10.8)
[2022-12-22 19:38] LABS: Alanine Aminotransferase 31 U/L (12-78); Albumin Level 3.8 g/dl (3.5-5.0); Albumin/Globulin Ratio 1.3 (1.1-1.8); Alkaline Phosphatase 112 U/L (38-126); Aspartate Amino Transferase 24 U/L (17-59); Bilirubin,Total 0.3 mg/dl (0.2-1.3); Blood Urea Nitrogen 46 mg/dl (9-20); Calcium 8.8 mg/dl (8.4-10.2); Carbon Dioxide 21 mmol/L (22.0-30.0); Chloride 106 mmol/L (98-107); Estimated Glomerular Filt Rate 27 ml/min (>60); GFR (African American) 32 ML/MIN (>60); Glucose 290 mg/dl (74-100); Sodium 137 mmol/L (136-145); Total Protein,Serum 6.8 g/dl (6.3-8.2)
[2022-12-22 19:52] LABS: Hemoglobin A1C 7.4 % (4.0-6.0)
[2022-12-22 20:05] LABS: Prostate Specific Ag Screen 4.3 ng/ml (0.0-4.0)
== END ==
PROVIDERS: PCP Family Medicine; Visit Provider Family Medicine
DX: R07.9 Chest pain, unspecified (principal); Z12.5 Encounter for screening for malignant neoplasm of prostate; E11.9 Type 2 diabetes mellitus without complications; Z79.4 Long term (current) use of insulin
CPT/HCPCS: 80053; 83036; 85025; G0103

== ENCOUNTER → 2023-02-17 15:39 | Outpatient (CLI) | payer MEDICARE, SELFPAY ==
[2023-02-17 19:27] LABS: Alanine Aminotransferase 35 U/L (12-78); Albumin Level 3.7 g/dl (3.5-5.0); Albumin/Globulin Ratio 1.3 (1.1-1.8); Alkaline Phosphatase 83 U/L (38-126); Anion Gap 13.8 mEq/L (5-15); Aspartate Amino Transferase 34 U/L (17-59); Blood Urea Nitrogen 40 mg/dl (9-20); Calcium 8.8 mg/dl (8.4-10.2); Carbon Dioxide 22 mmol/L (22.0-30.0); Chloride 106 mmol/L (98-107); Estimated Glomerular Filt Rate 26 ml/min (>60); GFR (African American) 31 ML/MIN (>60); Globulin 2.8 g/dL (1.3-3.2); Glucose 227 mg/dl (74-100); Potassium 4.8 mmoL/L (3.5-5.1); Sodium 137 mmol/L (136-145); Total Protein,Serum 6.5 g/dl (6.3-8.2)
[2023-02-17 19:29] LABS: Bilirubin,Total 0.1 mg/dl (0.2-1.3)
== END ==
PROVIDERS: PCP Family Medicine; Visit Provider Family Medicine
DX: N28.9 Disorder of kidney and ureter, unspecified (principal)
CPT/HCPCS: 80053

== ENCOUNTER 2023-02-22 13:26 | Emergency (ER) | payer MEDICARE, SELFPAY ==
[2023-02-22] VITALS (9 sets, daily range): BP systolic 167–191; BP diastolic 77–96; PULSE 73–98; RESP 14–22; TEMP 36.7–36.8; O2SAT 100; BMI 25.7
--- NOTE | 2023-02-22 13:36 | ECG_ITS ---
APPROVED REPORT Exam: Resting ECG HR:99 bpm ECG Measurements Heart Rate 99 AXES AL 175 P 264 QRSd 104 QRS 92 QT 337 T 48 QTc 393 Conclusion ECTOPIC ATRIAL RHYTHM BORDERLINE RIGHT AXIS DEVIATION [QRS AXIS > 90] NONSPECIFIC ST & T-WAVE ABNORMALITY ABNORMAL RHYTHM ECG UNCONFIRMED REPORT Electronically signed by : Gael Coffey MD 02/22/2023 21:12:03
--- NOTE | 2023-02-22 13:50 | XR_ITS ---
FINAL REPORT CLINICAL HISTORY: cp, chest mass FINDINGS: A portable view of the chest was obtained. Cardiac and mediastinal silhouettes are within normal limits. The lungs are clear. There is no pleural effusion or pneumothorax. IMPRESSION: No acute process on this portable exam. Reviewed, Interpreted and Dictated by Abby Avery MD Transcribed by Rola Yao Authenticated and [facility]
--- NOTE | 2023-02-22 13:57 | PC.NURSE ---
Dr. Pop at BS for pt eval
--- NOTE | 2023-02-22 14:00 | PC.NURSE ---
RAD at for CXR
[2023-02-22 14:02] LABS: VBG Base Excess -6.5 mmol/L (-2.4-2.3); VBG HCO3 20.4 mmol/L (23-30); VBG Oxygen Saturation 80.2 % (50-70); VBG PCO2 45.1 mmol/L (35-51); VBG PH 7.27 mmol/L (7.31-7.41); VBG PO2 47.3 mmol/L (28-40); VBG Total CO2 21.8 mmol/L (23-27)
--- NOTE | 2023-02-22 14:03 | CT_ITS ---
FINAL REPORT TECHNIQUE: Axial imaging of the chest is obtained after the administration of contrast. 3-D MIP reformatted images were also obtained and reviewed per PE protocol. CLINICAL HISTORY: L chest wall pain and pleurisy COMPARISON: None FINDINGS: The pulmonary arteries are well filled. There is no evidence of pulmonary embolus. There is no aortic dissection or intimal flap. There is no mediastinal, hilar, or axillary lymphadenopathy. The lungs are clear. There is no pleural or pericardial effusion. Limited evaluation of the upper abdomen is without acute abnormality. No acute osseous abnormality. IMPRESSION: No evidence of pulmonary embolism or aortic dissection. Reviewed, Interpreted and Dictated by Abby Avery MD Transcribed by Harper Lee Authenticated and [facility]
[2023-02-22 14:04] LABS: Chloride 109 mmol/L (98-107); Potassium 4.2 mmoL/L (3.5-5.1); Sodium 139 mmol/L (136-145)
[2023-02-22 14:07] LABS: Alanine Aminotransferase 44 U/L (12-78); Albumin Level 3.8 g/dl (3.5-5.0); Albumin/Globulin Ratio 1.2 (1.1-1.8); Alkaline Phosphatase 82 U/L (38-126); Anion Gap 11.2 mEq/L (5-15); Aspartate Amino Transferase 41 U/L (17-59); Bilirubin,Total 0.2 mg/dl (0.2-1.3); Blood Urea Nitrogen 48 mg/dl (9-20); Calcium 8.2 mg/dl (8.4-10.2); Carbon Dioxide 23 mmol/L (22.0-30.0); Creatinine Clearance Estimated 31 mL/min (50-200); Estimated Glomerular Filt Rate 23 ml/min (>60); GFR (African American) 28 ML/MIN (>60); Globulin 3.1 g/dL (1.3-3.2); Glucose 191 mg/dl (74-100); Total Protein,Serum 6.9 g/dl (6.3-8.2)
[2023-02-22 14:12] LABS: Basophils # 0.1 K/mm3 (0-0.2); Basophils % 0.8 % (0.1-2.0); Eosinophils # 0.2 K/mm3 (0.0-0.4); Eosinophils % 2.4 % (0.1-12.0); Hematocrit 30.6 % (42.0-52.0); Hemoglobin 10.7 g/dL (14.1-18.0); Lymphocytes % 26.8 % (10-50); Mean Corpuscular HGB Conc 34.8 g/dL (31.8-35.4); Mean Corpuscular Hemoglobin 31.4 pg (27.0-31.2); Mean Corpuscular Volume 90.2 fl (80-94); Mean Platelet Volume 8.1 fl (7.4-10.4); Monocytes # 0.3 K/mm3 (0.1-1.0); Monocytes % 4.6 % (1.7-9.3); Neutrophils # 4.8 K/mm3 (1.8-7.8); Neutrophils % 65.3 % (37.0-80.0); Platelet Count 190 K/mm3 (142-424); White Blood Count 7.4 K/mm3 (4.8-10.8)
[2023-02-22 14:23] LABS: Troponin I < 0.01 ng/ml (0.00-0.034)
--- NOTE | 2023-02-22 14:23 | HMH.EDGENADL ---
Discharge Plan Disposition Patient Disposition: Home, Self-Care Condition: Good Prescriptions Prescriptions: No Action cholecalciferol (vitamin D3) 125 mcg (5,000 unit) capsule 5,000 unit PO DAILY mecobalamin (vitamin B12) [B12 Active] 1,000 mcg tablet,chewable 1,000 mcg PO DAILY amlodipine-benazepril [Lotrel] 10-40 mg capsule 1 cap PO DAILY Qty: 90 3RF (DME) insulin syringe-needle U-100 [Droplet Insulin Syringe] 1 mL 31 gauge x 5/16 syringe 1 ml .ROUTE .MEDSUPPLY Qty: 100 10RF Rx Instructions: As directed tamsulosin [Flomax] 0.4 mg capsule 0.4 mg PO DAILY Qty: 30 2RF hydralazine 50 mg tablet 50 mg PO TID Qty: 90 2RF oxycodone-acetaminophen [Percocet] 5-325 mg tablet 1 tab PO BID PRN (Reason: pain) Qty: 60 0RF (DME) True Metrix Glucose Test Strip Strip 1 strip .ROUTE .MEDSUPPLY Qty: 10 0RF Rx Instructions: As directed (DME) blood-glucose meter [True Metrix Glucose Meter] Kit 1 ea .ROUTE .MEDSUPPLY Qty: 1 0RF Rx Instructions: As directed (DME) pen needle, diabetic [Droplet Pen Needle] 31 gauge x 5/16 needle 1 ea .ROUTE .MEDSUPPLY Qty: 1200 0RF Rx Instructions: As directed atorvastatin [Lipitor] 20 mg tablet 20 mg PO DAILY Qty: 90 3RF insulin aspart U-100 [Novolog FlexPen U-100 Insulin] 100 unit/mL (3 mL) insulin pen See Rx Instructions .ROUTE .COMPLEX Qty: 15 4RF Rx Instructions: 10 units ac tid or as directed; insulin glargine [Lantus U-100 Insulin] 100 unit/mL solution See Rx Instructions .ROUTE .COMPLEX Qty: 10 10RF Rx Instructions: 30 units hs, or as directed; metoprolol succinate 50 mg tablet extended release 24 hr See Rx Instructions .ROUTE .COMPLEX Qty: 135 10RF Dose Instruction: TAKE 1 AND 1/2 TABLETS EVERY DAY Rx Instructions: TAKE 1 AND 1/2 TABLETS EVERY DAY Referrals Follow up/Referrals: Carlos Chin MD [Primary Care Provider] - See instructions Activity Restrictions/Add. Instructions Additional Instructions/Restrictions: Please follow-up with your primary care provider over the next 24 hours for recheck of your blood pressure and your kidney function. Take Tylenol at home as needed for your pain. Continue taking your other medications at home as prescribed. Return to the emergency department for new or worsening symptoms. Clinical Impressions Clinical Impression: Left shoulder pain, High blood pressure, Creatinine elevation Instructions Patient Instructions: DI for Atypical Chest Pain, DI for Shoulder Pain Discharge ED Provider: Lu Wang General Adult HPI <Fran Pop MD - Last Filed: 02/22/23 14:48> General Chief complaint: Chest Pain Stated complaint: pain in Lt side nipple, Lt shoulder/back Time Seen by Provider: 02/22/23 13:30 Mode of Arrival: Ambulatory Source of Information: Patient Limitations: hard of hearing Description of Symptoms (Recalled from ER Triage Doc. by RN): pt has been having left arm/side pain for 2-3 weeks and has been having chest pain x 1 week. pt states it just keeps progressing and getting worse, denies soa but did take extra bp pill this morning due to high bp History of Present Illness HPI narrative: 72-year-old male unknown medical history secondary to poor historian presenting with left-sided chest pain. Patient states that I have had all kinds of health problems. He also states I have had 17 or more operations at different hospitals with different doctors, on his chest over the past few years. Per chart review, patient has hypertension, hyperlipidemia, CKD, CAD. Patient denies being on blood thinners. States that for about 3 weeks he has had chest pain that is left-sided, worse with application of pressure and laying on his left side, also made worse with deep inspiration. Denies cough, nausea or vomiting, fevers or chills, diarrhea or constipation. No neurologic deficits. Pain is constantly mild, but intermittently
[2023-02-22 14:32] LABS: Lipase 65 U/L (23-300)
[2023-02-22 14:42] LABS: NT Pro Brain Natriuretic Pep. 2030 pg/mL (0-125)
--- NOTE | 2023-02-22 15:09 | PC.NURSE ---
Pt gone to RAD via stretcher
--- NOTE | 2023-02-22 15:28 | PC.NURSE ---
Pt returned from RAD
--- NOTE | 2023-02-22 15:31 | HMH.ITSTN ---
GFR results were overrode for the use of contrast media by DR BARRAZA
--- NOTE | 2023-02-22 15:35 | HMH.ITSTN ---
DISCUSSED GFR WITH ER DOC, PATIENT GIVEN A BOLUS OF 300 ML FLUIDS BEFORE I SCANNED HIM AND WAS HOOKED BACK TO FLUIDS IMMEDIATELY AFTER SCAN
--- NOTE | 2023-02-22 16:10 | PC.NURSE ---
called radiology to see if CTA had been read yet, tech stated it was currently being read and to call back in 20 minutes to see if it was done since the reports have not been crossing over
--- NOTE | 2023-02-22 16:30 | PC.NURSE ---
called radiology back to double check status of cta chest and tech states its currently still locked and she will recheck on it again after she gets done with a mammogram
[2023-02-22 18:09] LABS: Troponin I < 0.01 ng/ml (0.00-0.034)
== END 2023-02-22 17:35 | disposition home or self-care (01) ==
LOC: UTC 13:28 → ER 13:39
PROVIDERS: Emergency Medicine; Emergency Provider Emergency Medicine; PCP Family Medicine
DX: M25.512 Pain in left shoulder (principal); R07.89 Other chest pain; I11.9 Hypertensive heart disease without heart failure; R79.89 Other specified abnormal findings of blood chemistry; I25.10 Atherosclerotic heart disease of native coronary artery without angina pectoris; E78.5 Hyperlipidemia, unspecified; N18.9 Chronic kidney disease, unspecified; E11.9 Type 2 diabetes mellitus without complications; Z79.4 Long term (current) use of insulin; Z87.891 Personal history of nicotine dependence
CPT/HCPCS: 71045; 71275; 80053; 82803; 83690; 83880; 84484; 85025; 93005; 96361; 96374; 99285; J0131; Q9967

== ENCOUNTER 2023-04-06 07:29 | Emergency (ER) | payer MEDICARE, SELFPAY ==
--- NOTE | 2023-04-06 07:28 | ECG_ITS ---
APPROVED REPORT Exam: Resting ECG HR:103 bpm ECG Measurements Heart Rate 103 AXES QRSd 105 QRS 91 QT 351 T 55 QTc 411 Conclusion ATRIAL FIBRILLATION WITH RAPID VENTRICULAR RESPONSE BORDERLINE RIGHT AXIS DEVIATION [QRS AXIS > 90] NONSPECIFIC ST & T-WAVE ABNORMALITY ABNORMAL RHYTHM ECG UNCONFIRMED REPORT Electronically signed by : Gael Coffey MD 04/06/2023 19:44:30
[2023-04-06 07:30] VITALS: BP 210/109; PULSE 105; RESP 23; TEMP 36.8; O2SAT 96; BMI 25.7
--- NOTE | 2023-04-06 07:38 | PC.NURSE ---
DR THOMAS AT BEDSIDE
--- NOTE | 2023-04-06 07:41 | PC.NURSE ---
RADIOLOGY NOTIFIED OF STROKE PROTOCOL SCANS
--- NOTE | 2023-04-06 07:43 | CT_ITS ---
FINAL REPORT TECHNIQUE: NASCET technique utilized for stenosis evaluation. CLINICAL HISTORY: R facial weakness and dysarthria possible stroke COMPARISON: None FINDINGS: RIGHT CAROTID: No significant stenosis is seen of the cervical common or internal carotid artery. LEFT CAROTID: No significant stenosis seen of the cervical common or internal carotid artery. VERTEBRALS: There is a solitary left vertebral artery. No significant stenosis is present. IMPRESSION: No significant arterial abnormality. Reviewed, Interpreted and Dictated by Lux Bob MD Transcribed by Guillermina Harper Authenticated and [facility]
--- NOTE | 2023-04-06 07:43 | CT_ITS ---
FINAL REPORT TECHNIQUE: thin section axial CT with and without IV contrast supplemented with multiplanar 3-D reconstruction of the head. This study was performed with techniques to keep radiation doses as low as reasonably achievable, (ALARA)individualized dose reduction techniques using automated exposure control or adjustment of mA and/or kV according to the patient's size were employed. CLINICAL HISTORY: R facial weakness and dysarthria possible stroke COMPARISON: None FINDINGS: HEAD CT: The ventricles are normal in size. There is no evidence of hemorrhage. No masses are identified. No extra-axial fluid is seen. The sinuses are normal. CTA: The cranial circulation is unremarkable. There is no significant stenosis, aneurysm or occlusion. IMPRESSION: No evidence of large vessel occlusion. Reviewed, Interpreted and Dictated by Lux Bob MD Transcribed by Guillermina Harper Authenticated and [facility]
--- NOTE | 2023-04-06 07:43 | CT_ITS ---
FINAL REPORT TECHNIQUE: Axial CT images were performed through the head. Coronal reformatted images were submitted. This study was performed with techniques to keep radiation doses as low as reasonably achievable (ALARA). Individualized dose reduction techniques using automated exposure control or adjustment of mA and/or kV according to the patient's size were employed. CLINICAL HISTORY: R facial weakness and dysarthria. poss stroke COMPARISON: 08/25/2021 FINDINGS: There is moderate atrophy. There is moderate patchy decreased attenuation in the deep white matter consistent with chronic ischemia. The ventricles are normal in size. There is no evidence of hemorrhage. There is no mass or edema identified. There is no abnormal extra-axial fluid seen. There is mild mucoperiosteal thickening in the right maxillary sinus. No air-fluid levels are noted. IMPRESSION: Changes of chronic microvascular ischemia. No acute intracranial process. Diffusion weighted MRI may be of value. Reviewed, Interpreted and Dictated by Lux Bob MD Transcribed by Guillermina Harper Authenticated and [facility]
--- NOTE | 2023-04-06 07:45 | XR_ITS ---
FINAL REPORT CLINICAL HISTORY: Shortness of breath COMPARISON: 02/22/2023 FINDINGS: The heart size is normal. The mediastinum is normal. There are chronic changes in the lung bases. There is no acute infiltrate or edema. There are no pleural effusions. There is no pneumothorax. There is no osseous abnormality. There are multiple surgical clips in the right supraclavicular region. IMPRESSION: Chronic changes without acute cardiopulmonary process Reviewed, Interpreted and Dictated by Lux Bob MD Transcribed by Guillermina Harper Authenticated and [facility]
--- NOTE | 2023-04-06 07:45 | PC.NURSE ---
PT TO CT
--- NOTE | 2023-04-06 07:47 | HMH.EDGENADL ---
Discharge Plan Disposition Patient Disposition: Xfer Other Chief Complaint: Neuro Symptoms/Deficit Prescriptions Prescriptions: No Action cholecalciferol (vitamin D3) 125 mcg (5,000 unit) capsule 5,000 unit PO DAILY mecobalamin (vitamin B12) [B12 Active] 1,000 mcg tablet,chewable 1,000 mcg PO DAILY amlodipine-benazepril [Lotrel] 10-40 mg capsule 1 cap PO DAILY Qty: 90 3RF (DME) insulin syringe-needle U-100 [Droplet Insulin Syringe] 1 mL 31 gauge x 5/16 syringe 1 ml .ROUTE .MEDSUPPLY Qty: 100 10RF Rx Instructions: As directed tamsulosin [Flomax] 0.4 mg capsule 0.4 mg PO DAILY Qty: 30 2RF hydralazine 50 mg tablet 50 mg PO TID Qty: 90 2RF (DME) True Metrix Glucose Test Strip Strip 1 strip .ROUTE .MEDSUPPLY Qty: 10 0RF Rx Instructions: As directed (DME) blood-glucose meter [True Metrix Glucose Meter] Kit 1 ea .ROUTE .MEDSUPPLY Qty: 1 0RF Rx Instructions: As directed (DME) pen needle, diabetic [Droplet Pen Needle] 31 gauge x 5/16 needle 1 ea .ROUTE .MEDSUPPLY Qty: 1200 0RF Rx Instructions: As directed atorvastatin [Lipitor] 20 mg tablet 20 mg PO DAILY Qty: 90 3RF insulin aspart U-100 [Novolog FlexPen U-100 Insulin] 100 unit/mL (3 mL) insulin pen See Rx Instructions .ROUTE .COMPLEX Qty: 15 4RF Rx Instructions: 10 units ac tid or as directed; insulin glargine [Lantus U-100 Insulin] 100 unit/mL solution See Rx Instructions .ROUTE .COMPLEX Qty: 10 10RF Rx Instructions: 30 units hs, or as directed; metoprolol succinate 50 mg tablet extended release 24 hr See Rx Instructions .ROUTE .COMPLEX Qty: 135 10RF Dose Instruction: TAKE 1 AND 1/2 TABLETS EVERY DAY Rx Instructions: TAKE 1 AND 1/2 TABLETS EVERY DAY oxycodone-acetaminophen [Percocet] 5-325 mg tablet 1 tab PO BID PRN (Reason: pain) Qty: 60 0RF Referrals Follow up/Referrals: Provider,Referral, MD [Primary Care Provider] - See instructions Clinical Impressions Clinical Impression: Acute CVA (cerebrovascular accident), Diabetes, CKD (chronic kidney disease), Hypertensive emergency Stand Alone Forms Stand Alone Forms: Transfer Record - ED Discharge ED Provider: Lu Wang General Adult HPI General Chief complaint: Neuro Symptoms/Deficit Stated complaint: weakness Time Seen by Provider: 04/06/23 07:31 History of Present Illness HPI narrative: Patient is a 72-year-old male brought in by EMS for difficulty speaking and swallowing. Patient is able to be understood but is having significant dysarthria and history is limited. He claims that he was awake earlier this morning several hours ago and was talking normally and felt completely normal states that his girlfriend was with him and that she can corroborate this information but she is not here currently. He states he suddenly went to the bathroom and while he was trying to use the bathroom he experienced what he describes as entire body paralysis. States that he was awake and aware of what was going on but could not move any of his 4 extremities. Also at the same time he began having difficulty with speaking and swallowing. Since that time his weakness in his upper extremities and lower extremities has improved not completely resolved but almost completely resolved at this point. He still has some right-sided facial weakness states that it feels very funny and difficulty swallowing and speaking. States he is normally fluent. He has a history of hypertension diabetes and chronic kidney disease from chart review. Also from historical standpoint he has a median sternotomy scar but states that this is from a surgery to have part of his clavicle removed and states that he has no underlying heart disease. Related Data Home Medications Medication Instructions Recorded Confirmed cholecalciferol (vitamin D3) 125 5,000 unit PO DAILY 07/20/22 02/17/23 mcg (5,000 unit) capsule mecobalami
[2023-04-06 07:56] LABS: Basophils % 0.1 % (0.1-2.0); Chloride 111 mmol/L (98-107); Eosinophils % 0.1 % (0.1-12.0); Hematocrit 31.6 % (42.0-52.0); Hemoglobin 10.7 g/dL (14.1-18.0); Lymphocytes # 0.7 K/mm3 (0.7-4.5); Mean Corpuscular HGB Conc 33.8 g/dL (31.8-35.4); Mean Corpuscular Hemoglobin 31.5 pg (27.0-31.2); Mean Corpuscular Volume 93.2 fl (80-94); Mean Platelet Volume 8.5 fl (7.4-10.4); Neutrophils # 14.5 K/mm3 (1.8-7.8); Neutrophils % 89.8 % (37.0-80.0); Platelet Count 192 K/mm3 (142-424); Red Blood Count 3.39 M/mm3 (4.60-6.20); Red Cell Distribution Width 15.4 % (11.5-17.5); Sodium 139 mmol/L (136-145); White Blood Count 16.2 K/mm3 (4.8-10.8)
[2023-04-06 07:57] LABS: Potassium 4.6 mmoL/L (3.5-5.1)
[2023-04-06 07:58] VITALS: BP 206/102; PULSE 103; RESP 15; O2SAT 99
[2023-04-06 07:59] LABS: Alanine Aminotransferase 46 U/L (12-78); Alkaline Phosphatase 105 U/L (38-126); Aspartate Amino Transferase 34 U/L (17-59); Bilirubin,Total 0.6 mg/dl (0.2-1.3); Blood Urea Nitrogen 46 mg/dl (9-20); Estimated Glomerular Filt Rate 19 ml/min (>60); GFR (African American) 22 ML/MIN (>60); MANUAL DIFFERENTIAL MANUAL DIFFERENTIAL (MANUAL DIFF)
[2023-04-06 08:00] LABS: Albumin Level 3.8 g/dl (3.5-5.0); Albumin/Globulin Ratio 1.3 (1.1-1.8); Anion Gap 13.6 mEq/L (5-15); Calcium 8.3 mg/dl (8.4-10.2); Carbon Dioxide 19 mmol/L (22.0-30.0); Glucose 294 mg/dl (74-100); Total Protein,Serum 6.8 g/dl (6.3-8.2)
--- NOTE | 2023-04-06 08:00 | PC.NURSE ---
RADIOLOGY TO [facility] ALL IMAGES TO [facility]
[2023-04-06 08:01] VITALS: BP 211/109; PULSE 103; O2SAT 99
[2023-04-06 08:01] LABS: Activated Partial Thrombo Time 25.3 seconds (22.8-30.6); INR 0.99 (0.9-1.1); Prothrombin Time 10.7 seconds (10.1-12.5)
--- NOTE | 2023-04-06 08:02 | PC.NURSE ---
placed call to Dr Torres speaking to stroke team
--- NOTE | 2023-04-06 08:10 | PC.NURSE ---
Dr. Torres at bedside to s/w pt & his girlfriend.
[2023-04-06 08:11] LABS: Troponin I 0.02 ng/ml (0.00-0.034)
--- NOTE | 2023-04-06 08:14 | PC.NURSE ---
Dr. Torres at speaking with patient and patients friend.
--- NOTE | 2023-04-06 08:17 | PC.NURSE ---
portable radiology at
--- NOTE | 2023-04-06 08:21 | PC.NURSE ---
Dr Torres speaking with Dr Vora at [facility]
[2023-04-06 08:30] VITALS: BP 222/110; PULSE 102; RESP 18; O2SAT 99
--- NOTE | 2023-04-06 08:34 | PC.NURSE ---
Dr. Torres s/w Dr. Hodge with [facility], agrees to accept pt and bring via [facility]. [facility] notified and they are 22 min out. 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
[2023-04-06 08:45] LABS: Microscopic, Urine URINE MICROSCOPIC (MICROSCOPIC)
--- NOTE | 2023-04-06 08:48 | PC.NURSE ---
[facility] called 9 min ETA
[2023-04-06 08:50] LABS: Lymphocytes % 8 % (10-50); Monocytes % 2 % (2-9); Neutrophils % 90 % (42-76); Total Cells Counted 100
[2023-04-06 08:51] LABS: Platelet Estimate Normal; RBC Morphology Normal
[2023-04-06 08:52] LABS: Appearance,Urine CLEAR (Clear); Bilirubin,Urine Negative (Negative); Blood, Urine 2+ (Negative); Color,Urine YELLOW (Yellow); Glucose,Urine (UA) 2+ (Negative); Ketones,Urine Negative (Negative); Leukocyte Esterase,Urine Negative (Negative); Nitrate,Urine Negative (Negative); PH,Urine 5.5 (5.0-8.5); Protein,Urine 3+ (Negative); Specific Gravity, Urine 1.025 (1.005-1.030); Urobilinogen,Urine 0.2 EU/dl (0.2)
[2023-04-06 09:00] VITALS: BP 225/115; PULSE 104; RESP 17; O2SAT 98
--- NOTE | 2023-04-06 09:08 | PC.NURSE ---
Report given to Zeenat JAIME @ [facility].
[2023-04-06 09:11] VITALS: BP 208/115; PULSE 105; RESP 20; TEMP 36.8; O2SAT 98
[2023-04-06 09:16] LABS: WBC,Urine Occasional #/hpf (0-3)
[2023-04-06 09:17] LABS: Bacteria,Urine Trace /lpf; Squamous Epithelial Cell,Urine Occasional #/hpf (0-5)
--- NOTE | 2023-04-06 09:22 | PC.NURSE ---
Report given to [facility], preparing pt for transport.
== END 2023-04-06 09:23 | disposition other institution (70) ==
PROVIDERS: Student in an Organized Health Care Education/Training Program; Emergency Provider Emergency Medicine
DX: I63.9 Cerebral infarction, unspecified (principal); I48.91 Unspecified atrial fibrillation; I16.1 Hypertensive emergency; E11.65 Type 2 diabetes mellitus with hyperglycemia; N18.9 Chronic kidney disease, unspecified; F17.290 Nicotine dependence, other tobacco product, uncomplicated; Z79.4 Long term (current) use of insulin
CPT/HCPCS: 51702; 70450; 70496; 70498; 71045; 80053; 81001; 84484; 85007; 85025; 85610; 85730; 93005; 96365; 99291; Q9967